=== PATIENT | female | born 1975 | race Two or more races ===

== ENCOUNTER → 2018-08-26 | Day surgery (SDC) | payer MEDICARE ==
[~2018-08-26] MED LIST: AMLO2.5T5 PO; BUPR150T6 PO; CLON0.5T11 PO; IV RINGERS,LACTATED 1000ML 1,000 ML IV SCH; LISI1TAB7 PO; LUBI24CA7 PO; LURA60TA PO; NORE1TAB24 PO; PROP40TA PO; PROPOFOL 40 ML IV ONE; SUCR1TAB PO; TOPI100T8 PO
[2018-08-26 08:02] LABS: U PREG PATIENT NEGATIVE (NEG)
[2018-08-26 09:15] VITALS: BP 119/76
--- NOTE | 2018-08-27 11:09 | PATHOLOGY ---
[facility] Accession Number: [id number] . 01 Material submitted: . rectum - RECTAL POLYPS . 01 Clinical history: . Change in bowel habits . 02 Diagnosis: Colon biopsies, rectal polyps: - Hyperplastic polyps. (JPM:vicky; 08/27/2018) QMS/08/27/2018 . 02 Comment: There are no adenomatous changes or evidence of malignancy. . 02 Electronically signed: . Keon Hooks MD, Pathologist NPI- [id number] . 01 Gross description: . Received in formalin labeled "Turner, Stacy, rectal polyps," are 2 segments of hammonds soft tissue measuring 0.7 x 0.2 x 0.2 cm in aggregate dimensions and ranging from 0.3 to 0.4 cm in maximum dimension. The specimen is submitted entirely in cassette A1. (TSD; 08/26/2018) TOB/TOB . 02 Pathologist provided ICD-10: K62.1 . 02 CPT . 298907 Specimen Comment: A courtesy copy of this report has been sent to Specimen Comment: [phone], . Specimen Comment: Report sent to / DR ZULUAGA Specimen Comment: A duplicate report has been generated due to demographic updates. Performed at: 01 [facility] [address], [place], [place] [id number] MD Raymundo King MD Phone: [phone] Performed at: 02 [facility] [address] [place], [place] [id number] MD Keon Hooks MD Phone: [phone]
== END | disposition home or self-care (01) ==
LOC: SURG 07:23
PROVIDERS: ATTEND Internal Medicine Gastroenterology
DX: K62.1 Rectal polyp (principal); K57.30 Diverticulosis of large intestine without perforation or abscess without bleeding; K64.0 First degree hemorrhoids; Z88.0 Allergy status to penicillin; Z88.1 Allergy status to other antibiotic agents; F41.9 Anxiety disorder, unspecified; F32.9 Major depressive disorder, single episode, unspecified; I10 Essential (primary) hypertension; Z87.11 Personal history of peptic ulcer disease; Z82.3 Family history of stroke; Z83.3 Family history of diabetes mellitus; Z82.49 Family history of ischemic heart disease and other diseases of the circulatory system; Z87.891 Personal history of nicotine dependence; Z79.899 Other long term (current) drug therapy; Z90.49 Acquired absence of other specified parts of digestive tract
CPT/HCPCS: 45380; 81025; 88305; J2704

== ENCOUNTER 2020-09-03 15:42 | Emergency (ER) | payer MEDICARE ==
[2018-08-26 09:15] VITALS: BP 119/76
[~2020-09-03 15:42] MED LIST changes: +BUPR150T21 PO; -BUPR150T6 PO; +CLON-77 PO; -CLON0.5T11 PO; -IV RINGERS,LACTATED 1000ML 1,000 ML IV SCH; +LISI1TAB20 PO; -LISI1TAB7 PO; -PROPOFOL 40 ML IV ONE
== END 2020-09-03 16:36 | disposition left against medical advice (07) ==
LOC: ER 15:42
DX: R42 Dizziness and giddiness (principal); Z53.21 Procedure and treatment not carried out due to patient leaving prior to being seen by health care provider

== ENCOUNTER → 2021-01-01 | Outpatient (CLI) | payer MEDICARE ==
[2018-08-26 09:15] VITALS: BP 119/76
--- NOTE | 2021-01-02 10:55 | RAD ---
MR#: [id number] Date of Study: 01/01/2021 Ordering Physician: SARITHA REBOLLEDO, Referring Physician: SARITHA REBOLLEDO, Tech: Ben Kraft MBA, RDMS, RVT, RDCS, RTR APPROVED REPORT Patient Location: OUT-PATIENT Indications RAYNAUD PHENOMENON VELOCITY AND DOPPLER WAVEFORM ANALYSIS RIGHT cm/secWaveformSeverity LEFT cm/secWaveform Severity dCFA 122.0TriphasicdCFA 126.0Triphasic Prof Fem Art. 107.0MonophasicProf Fem Art. 99.0Monophasic Fem Art Prox. 164.0TriphasicFem Art Prox. 132.0Triphasic Fem Art Mid. 130.0TriphasicFem Art Mid. 111.0Triphasic Fem Art Dist. 114.0TriphasicFem Art Dist. 91.0Triphasic Pop Art(Fossa) 96.0TriphasicPop Art(AK) 89.0Triphasic BI ANALYST Prox. 82.0TriphasicPTA Prox. 79.0Triphasic BI ANALYST Dist. 82.0TriphasicPTA Dist. 69.0Triphasic YUDY Prox. 71.0TriphasicATA Prox. 66.0Triphasic DPA 60TriphasicDPA 35Triphasic Findings Grayscale images of the bilateral lower extremity arterial vessels did not reveal any significant obs tructive plaque. Spectral waveforms and color Doppler are grossly within normal limits. Normal velocities are noted t hroughout the bilateral lower extremity arterial course. The bilateral peroneal arteries were not we ll visualized. Critical Notification Critical Value: No <Conclusion> 1. No significant bilateral lower extremity arterial disease. 2. The bilateral peroneal arteries were not visualized. Signed by : Sumit Tobias, Electronically Approved : 01/02/2021 10:54:58
--- NOTE | 2021-01-02 10:58 | CARD ---
MR#: [id number] Date of Study: 01/01/2021 Ordering Physician: SARITHA REBOLLEDO, Referring Physician: SARITHA REBOLLEDO Tech: Denisse Ramirez [facility] APPROVED REPORT EXAM: Two-dimensional and M-mode echocardiogram with Doppler and color Doppler. Other Information Quality : AverageHR: 68bpm Rhythm : NSR INDICATION 2D DIMENSIONS RVDd2.7 (2.9-3.5cm)Left Atrium(2D)3.0 (1.6-4.0cm) IVSd1.0 (0.7-1.1cm)Aortic Root(2D)2.9 (2.0-3.7cm) LVDd4.5 (3.9-5.9cm)LVOT Diameter1.8 (1.8-2.4cm) PWd1.0 (0.7-1.1cm)LVDs2.6 (2.5-4.0cm) FS (%) 40.6 %SV64.4 ml LVEF(%)71.5 (>50%) Aortic Valve AoV Peak Cordell.169.9cm/sAoV VTI35.3cm AO Peak GR.11.6mmHgLVOT Peak Cordell.108.3cm/s AO Mean GR.5mmHgAVA (VMAX)1.69cm2 Mitral Valve MV E Quhpguat695.8cm/sMV DECEL LDQZ996cb MV A Lwmpdqnp26.9cm/sE/A Ratio1.8 Pulmonary Valve PV Peak Adbushlr304.3cm/s Tricuspid Valve TR P. Boftqdou986xn/sTR Peak Gr.31mmHg LEFT VENTRICLE The left ventricle is normal size. There is normal left ventricular wall thickness. The left ventricu lar systolic function is normal and the ejection fraction is within normal range. Esitmated ejection fraction 60%. There is normal LV segmental wall motion. The left ventricular diastolic function and f illing is normal for age. RIGHT VENTRICLE The right ventricle is normal size. There is normal right ventricular wall thickness. The right ventr icular systolic function is normal. ATRIA The left atrium size is normal. The right atrium size is normal. The interatrial septum is intact wit h no evidence for an atrial septal defect or patent foramen ovale as noted on 2-D or Doppler imaging. AORTIC VALVE The aortic valve is normal in structure and function. Doppler and Color Flow revealed no significant aortic regurgitation. There is no significant aortic valvular stenosis. MITRAL VALVE The mitral valve is normal in structure and function. There is no evidence of mitral valve prolapse. There is no mitral valve stenosis. Doppler and Color-flow revealed mild mitral regurgitation. TRICUSPID VALVE The tricuspid valve is normal in structure and function. Doppler and Color Flow revealed trace tricus pid regurgitation. Estimated PAP 30 mmHg. There is no tricuspid valve stenosis. PULMONIC VALVE Doppler and Color Flow revealed no pulmonic valvular regurgitation. There is no pulmonic valvular jose nosis. GREAT VESSELS The aortic root is normal in size. The ascending aorta is normal in size. The IVC is normal in size a nd collapses >50% with inspiration. PERICARDIAL EFFUSION There is no evidence of significant pericardial effusion. Critical Notification Critical Value: No <Conclusion> The left ventricular systolic function is normal and the ejection fraction is within normal range. E sitmated ejection fraction 60%. There is normal LV segmental wall motion. Signed by : Sumit Tobias, Electronically Approved : 01/02/2021 10:57:36
== END ==
LOC: US 12:41
PROVIDERS: ATTEND Internal Medicine Cardiovascular Disease
DX: I34.0 Nonrheumatic mitral (valve) insufficiency (principal); I10 Essential (primary) hypertension; I73.00 Raynaud's syndrome without gangrene
CPT/HCPCS: 93306; 93925